=== PATIENT | female | born 1990 | race Caucasian/White ===

== ENCOUNTER 2017-07-16 22:11 | Emergency (ER) | payer MEDICAID ==
[~2017-07-16] VITALS: Ht 165.1 cm; Wt 63.5 kg
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
[2017-07-16] MEDS ORDERED: ONDANSETRON 4 MG TAB.RAPDIS SL ONE (23:30)
[2017-07-16] MEDS ORDERED: HYDROCODONE/APAP 10/325MG 1 EA TABLET PO ONE (23:30)
[2017-07-16] MEDS ORDERED: ONDANSETRON 4 MG TAB.RAPDIS ONE (23:45)
[2017-07-16] MEDS ORDERED: HYDROCODONE/APAP 10/325MG 1 EA TABLET ONE (23:45)
--- NOTE | 2017-07-16 23:47 | NUR ---
PT MEDICATED ORDERED.
--- NOTE | 2017-07-17 00:11 | NUR ---
JASMINE DAMON AT BEDSIDE.
--- NOTE | 2017-07-17 00:58 | NUR ---
Patient discharged to home in stable condition. Written and verbal after care instructions given. Patient verbalizes understanding of instruction. ambulatory with a steady gait noted. pt aaox4 no acute distress noted, resp even and unlabored. advice pt not to drive or operate any machinery due to pt was given narcotic medicine. pt verbalize understanding. pt family members at bedside to take pt home.
[2017-07-17 01:00] VITALS: BP 127/63
== END 2017-07-17 01:01 | disposition home or self-care (01) ==
LOC: ER 22:18
DX: S20.212A Contusion of left front wall of thorax, initial encounter (principal); S30.1XXA Contusion of abdominal wall, initial encounter; V43.52XA Car driver injured in collision with other type car in traffic accident, initial encounter; Y93.89 Activity, other specified; Y92.488 Other paved roadways as the place of occurrence of the external cause; Y99.8 Other external cause status
CPT/HCPCS: 71010; 72170; 76705; 93005; 99284; A4606; Q0162; Z7610